=== PATIENT | female | born 2005 | race Caucasian/White ===

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

== ENCOUNTER 2025-05-29 13:13 | Day surgery (SDC) | payer OTHER ==
[~2025-05-29] VITALS: Ht 162.6 cm; Wt 95.4 kg
[~2025-05-29 13:13] MED LIST changes: +Glycopyrrolate 0.2 MG/ML 1MLVIAL ONE; +Ondansetron HCl 2 MG / ML 2ML Vial ONE; +ePHEDrine Sulfate 50 MG/ML 1ML Injection ONE
[2025-05-29] MEDS ORDERED: SOLIFENACIN SUCC5 MG (13:24)
[2025-05-29] MEDS ORDERED: DROSPIRENONE-E1 EAC4 (13:24)
[2025-05-29] MEDS ORDERED: Midazolam HCL 1 MG/ML 5MLVIAL ONE (14:50)
[2025-05-29 16:12] VITALS: BP 108/69
== END 2025-05-29 16:04 | disposition home or self-care (01) ==
LOC: ORSCSDS 13:13
PROVIDERS: Internal Medicine Gastroenterology
PROC: 0DB98ZX Excision of Duodenum, Via Natural or Artificial Opening Endoscopic, Diagnostic (ICD-10-PCS; principal; 2025-05-29 14:45)
PROC: 0DJD8ZZ Inspection of Lower Intestinal Tract, Via Natural or Artificial Opening Endoscopic (ICD-10-PCS; principal; 2025-05-29 14:45)
PROC: 0DB78ZX Excision of Stomach, Pylorus, Via Natural or Artificial Opening Endoscopic, Diagnostic (ICD-10-PCS; principal; 2025-05-29 14:45)
DX: R19.4 Change in bowel habit (principal); K62.5 Hemorrhage of anus and rectum; R10.9 Unspecified abdominal pain; R11.0 Nausea; K29.70 Gastritis, unspecified, without bleeding; F17.210 Nicotine dependence, cigarettes, uncomplicated; Z68.36 Body mass index [BMI] 36.0-36.9, adult
CPT/HCPCS: 88305; 88342; J0461; J2003; J2250; J2405; J2704; J7120; Q9968